=== PATIENT | female | born 2005 | race African-American/Black ===

== ENCOUNTER 2024-08-06 08:29 | Emergency (ER) | payer OTHER, SELFPAY ==
[2024-08-06 08:37] VITALS: BP 135/80
--- NOTE | 2024-08-06 09:37 | ED.MUSCINJ ---
HPI-Injury
General
Chief Complaint: Extremity Pain (non-traumatic)
Source: patient and family (mother)
Exam Limitations: none
Time Seen by Provider: 08/06/24 09:17
Nursing documentation reviewed up to this point in time: agreed with
History of Present Illness-Injury
Is this injury a work related problem?: No
Is pt an associate of [facility]?: No
Initial Injury comments:
19-year-old female presents emergency room with complaining of saw spots in her bilateral feet. The pain began while she was walking on . She states she is on her feet a lot for school and work she has been wearing flip flops and wedges.
No fall, no bleeding.
Past History
Past History
ED Past Medical History: Seizures and Psychiatric (ADHD, anxiety, depression)
ED Past Surgical History: None
Patient has exhibited threatening behavior?: No
PSI?: No
Social History
Tobacco: Non-smoker
Alcohol: None
Drug: None
Personal: Single
Living: with family
Employment: Not employed
Family History
Family History: Other (positive for epilepsy and pseudo-seizures)
Review of Systems
Review of Systems
Allergies reviewed?: Yes
All Other Systems: Not applicable
Constitutional: Reports no symptoms
EENT: Reports no symptoms
Respiratory: Reports no symptoms
Cardiac: Reports no symptoms
ABD/GI: Reports no symptoms
: Reports no symptoms
Musculoskeletal: Reports joint pain
Skin: Reports no symptoms
Neurological: Reports no symptoms
Endocrine: Reports no symptoms
Hematologic/Lymphatic: Reports no symptoms
Psychiatric: Reports no symptoms
Phy Exam
Physical Exam
Physical Exam:
Physical Exam
General: no apparent distress, not acutely ill
Neck: supple. no meningeal signs. normal posterior pharynx
Heart: equal radial pulses.
HEENT: Pupils equal round reactive to light, EOMI
Lungs: no acute respiratory distress.
Abdomen: Nondistended
Neuro: alert and oriented. no focal neurological deficits
Skin: no rash
Psychiatric: well kept. interactive and cooperative
Extremities: no edema. no calf tenderness. negative homans. good distal pulses, tender to palpation at mid foot, no broken skin or blister
Injury Course
Orders/Labs/Results
Orders:
Orders
08/06/24 09:35
Foot, Left 3 View [CR Foot - Left Min 3 Views] Urgent
Comment:
Reason For Exam: left mid foot pain
Foot, Right 3 View [CR Foot - Right Min 3 Views] Urgent
Comment:
Reason For Exam: right mid foot pain
MDM/Problems Addressed
Differential Diagnosis Includes:
bilateral feet fractures, cellulitis
MDM/Problems Addressed:
19 yo female with bilateral foot pain, no fractures seen, no infection. F/u with podiatry, discussed better footwear.
*Radiology
Radiology exam reviewed: preliminary read by ED provider (bilateral foot xray: no fracture)
*Pulse Oximetry
Patient hypoxic: no
*Critical Care Note
Total Time (30-74mins, 75-104mins- exclusive of procedures): Not Applicable
Patient Management
Social determinants of health affecting care: Living situation
Escalation/DeEscalation of care consider admission/obs:
admit not indicated
ED Attending Note
-
Portions of this chart may have been created with voice recognition software.� Occasional wrong word or��sound alike� substitutions may have occurred due to the inherent limitations of voice recognition software.
Discharge Plan
Departure
Patient Disposition: Home (Routine Discharge)
Date of Disposition: 08/06/24
Time of Disposition: 10:16
Patient with high blood pressure during this ER visit?: Yes
Condition: Good
Discharge Problem:
Bilateral foot pain
Instructions: Muscle and Bone Pain (DC), BLOOD PRESSURE
Prescriptions:
No Action
atomoxetine [Strattera] 40 MG capsule
40 mg PO DAILY
methylphenidate HCl [Concerta] 36 MG tablet extended release 24hr
72 mg PO DAILY
multivitamin with folic acid [Tab-A-Johana] 1 TABLET tablet
1 tab PO DAILY
desvenlafaxine 50 MG tablet extended release 24hr
50 mg PO DAILY
clonidine HCl 0.1 MG tablet
0.1 mg PO HS
lamotrigine 25 MG tablet, chewable dispersible
25 mg PO BID 30 Days Qty: 60 0RF
Mucus Relief ER 1,200 mg tablet extended release 12hr
1,200 mg PO BID Qty: 14 0RF
albuterol sulfate [Ventolin HFA] 90 mcg/actuation HFA aerosol inhaler
2 puff inhalation Q6H PRN (Reason: shortness of breath or wheezing) Qty: 8.5 0RF
Referrals:
Chu Torres DO [Family Provider] -
Elise Ramey DPM [Specified Professional Personl] - Call in 1-3 days for appt
Discharge Date and Time
Print Language: GREENLANDIC
== END 2024-08-06 10:00 | disposition home or self-care (01) ==
LOC: EMR 08:29
PROVIDERS: EMERGENCY PHYSICIAN Emergency Medicine; FAMILY PHYSICIAN Family Medicine
DX: M79.671 Pain in right foot (principal); M79.672 Pain in left foot; R03.0 Elevated blood-pressure reading, without diagnosis of hypertension; F90.9 Attention-deficit hyperactivity disorder, unspecified type; R56.9 Unspecified convulsions; F41.9 Anxiety disorder, unspecified; F32.A Depression, unspecified
CPT/HCPCS: 99283; 73630

== ENCOUNTER 2025-01-06 10:46 | Emergency (ER) | payer OTHER, SELFPAY ==
[2025-01-06 10:51] VITALS: BP 129/79
[2025-01-06 11:23] LABS: COVID-19 Antigen Negative (Negative)
--- NOTE | 2025-01-06 11:47 | ED.GENMED ---
History of Present Illness
General
Chief Complaint: Cold/Flu/URI Symptoms
Source: patient
Exam Limitations: none
Time Seen by Provider: 01/06/25 11:35
History of Present Illness
History of Present Illness:
19yoF with a history of seizures, ADHD, and anxiety presenting for evaluation of flu-like symptoms x 1 day. Symptoms include sore throat, body aches, fatigue, headache, and vomiting. She also is having low grade fevers and temp is 100.2 on arrival.
Additionally, she feels short of breath and has been using her inhaler. No known sick contacts.
Past History
Past History
ED Past Medical History: Seizures and Psychiatric (ADHD, anxiety, depression)
ED Past Surgical History: None
Patient has exhibited threatening behavior?: No
PSI?: No
Social History
Tobacco: Non-smoker
Alcohol: None
Drug: None
Personal: Single
Living: with family
Employment: Not employed
Family History
Family History: Other (positive for epilepsy and pseudo-seizures)
Phy Exam
General Physical Exam
General Presentation: well appearing and no apparent distress
General age: appears stated age
General Skin: warm and dry
General Habitus: normal
General Mental: alert
ENT Exam
ENT Exam: pharynx normal and normocephalic
Cardiovascular Exam
Cardiovascular Exam: no murmur and tachycardia
Pulmonary Exam
Pulmonary Exam: no respiratory distress, no rales, no rhonchi and decreased breath sounds
Neurological Exam
Neurological Exam: alert
[place] Coma Scale
Eye Opening: Spontaneous
Verbal Response: Oriented
Motor Response: Obeys Commands
GCS Total Score: 15
Skin Exam
Skin Exam: normal color and warm/dry
Psychiatric Exam
Psychiatric Exam: normal mood/affect
Course
Orders/Labs/Results
Orders:
Orders
01/06/25 10:58
COVID-19 Antigen Urgent
Source: Nasal Swab
Influenza A+B Rapid Molecular Urgent
LUISANA Source: Nasal Swab
Specimen Description:
01/06/25 11:46
CR Chest - 2 Views Urgent
Comment:
Reason For Exam: SOB, flu+
Vital Signs
Initial and Last Documented VS:
Initial Vital Signs
Temp Pulse Resp BP Pulse Ox
100.2 F 125 20 129/79 98
01/06/25 10:51 01/06/25 10:51 01/06/25 10:51 01/06/25 10:51 01/06/25 10:51
Last Documented Vital Signs
Temp Pulse Resp BP Pulse Ox
99.1 F 94 16 133/87 99
01/06/25 12:00 01/06/25 12:00 01/06/25 12:00 01/06/25 12:00 01/06/25 12:57
MDM/Problems Addressed
Differential Diagnosis Includes:
19yoF here with flu-like symptoms since yesterday. Also c/o feeling slightly short of breath. Uses inhaler PRN but denies prior hx of asthma. Oxygen saturation 98% on room air. She is well appearing in no distress. Breath sounds decreased.
Respirations non-labored. Differential diagnosis includes but is not limited to: influenza, COVID, other viral illness, bronchospasm, pneumonia
Initial ED plan: Viral testing obtained in triage and she is positive for influenza A. Will obtain CXR.
*Critical Care Note
Total Time (30-74mins, 75-104mins- exclusive of procedures): Not Applicable
Update Note
Update Note:
CXR negative for infiltrates. Repeat oxygen saturation 99%. Patient stable for discharge. Given report of inhaler use, will prescribe course of prednisone. Refill also given for her albuterol inhaler. Supportive care discussed. Advised f/u with PCP
and ED return precautions discussed. Patient in agreement with plan and was discharged in stable condition.
ED Attending Note
-
Portions of this chart may have been created with voice recognition software.� Occasional wrong word or��sound alike� substitutions may have occurred due to the inherent limitations of voice recognition software.
Discharge Plan
Departure
Patient Disposition: Home (Routine Discharge)
Date of Disposition: 01/06/25
Time of Disposition: 12:55
Patient with high blood pressure during this ER visit?: No
Discharge Problem:
Influenza A, Bronchospasm
Instructions: Flu in adults - ED discharge instructions
Prescriptions:
New
albuterol sulfate [Ventolin HFA] 90 mcg/actuation HFA aerosol inhaler
1 inh inhalation Q6H PRN (Reason: shortness of breath or wheezing) Qty: 1 0RF
prednisone 20 mg tablet
40 mg PO DAILY 5 Days Qty: 10 0RF
No Action
atomoxetine [Strattera] 40 MG capsule
40 mg PO DAILY
methylphenidate HCl [Concerta] 36 MG tablet extended release 24hr
72 mg PO DAILY
multivitamin with folic acid [Tab-A-Johana] 1 TABLET tablet
1 tab PO DAILY
desvenlafaxine 50 MG tablet extended release 24hr
50 mg PO DAILY
clonidine HCl 0.1 MG tablet
0.1 mg PO HS
lamotrigine 25 MG tablet, chewable dispersible
25 mg PO BID 30 Days Qty: 60 0RF
Mucus Relief ER 1,200 mg tablet extended release 12hr
1,200 mg PO BID Qty: 14 0RF
albuterol sulfate [Ventolin HFA] 90 mcg/actuation HFA aerosol inhaler
2 puff inhalation Q6H PRN (Reason: shortness of breath or wheezing) Qty: 8.5 0RF
Referrals:
Chu Torres DO [Family Provider] -
Activity Restrictions/Additional Instructions:
Take prednisone as prescribed. Drink plenty of fluids and rest. Take Tylenol and ibuprofen as needed for fevers/body aches. Use inhaler as needed for wheezing.
Please follow-up with your family doctor. Return to the ER with any worsening symptoms or trouble breathing.
Interventions
Interventions:
*Risk Screen - Suicide Last Done: 01/06/25 11:59
*General Assessment Last Done: 01/06/25 11:59
*Neglect/Abuse Screening Last Done: 01/06/25 11:59
ED- Fall Risk Assessment Last Done: 01/06/25 11:59
*Nursing Disposition Last Done: 01/06/25 12:57
ED- Pulmonary Assessment Last Done: 01/06/25 11:59
Discharge Date and Time
Discharge Date/Time: 01/06/25 13:03
Print Language: NEPALI
[2025-01-06 12:00] VITALS: BP 133/87
== END 2025-01-06 13:03 | disposition home or self-care (01) ==
LOC: EMR 10:46
PROVIDERS: Emergency Medicine; EMERGENCY PHYSICIAN Emergency Medicine; FAMILY PHYSICIAN Family Medicine
DX: J10.1 Influenza due to other identified influenza virus with other respiratory manifestations (principal); J98.01 Acute bronchospasm; F90.9 Attention-deficit hyperactivity disorder, unspecified type; F41.9 Anxiety disorder, unspecified; Z11.52 Encounter for screening for COVID-19
CPT/HCPCS: 99284; 71046; 87502; 87811

== ENCOUNTER 2025-01-12 08:27 | Emergency (ER) | payer OTHER, SELFPAY ==
[2025-01-12 08:31] VITALS: BP 130/80
--- NOTE | 2025-01-12 09:00 | ED.GENMED ---
History of Present Illness
General
Chief Complaint: Cold/Flu/URI Symptoms
Source: patient
Exam Limitations: none
Time Seen by Provider: 01/12/25 08:57
Nursing documentation reviewed up to this point in time: agreed with
History of Present Illness
History of Present Illness:
Patient is a 19-year-old female who presents to the ER for evaluation of painful lump to the left lateral neck. She was here January 06 and diagnosed with influenza. Last night she noticed a lump to this left lateral neck. She denies any sore
throat. She did cough up a little blood. She has been coughing. She has been taking Motrin Tylenol for fevers. She does have history of asthma and had a chest x-ray done which was negative for infiltrates when she was seen here several days ago.
In addition she was prescribed prednisone for cough.
Past History
Past History
ED Past Medical History: Seizures and Psychiatric (ADHD, anxiety, depression)
ED Past Surgical History: None
Patient has exhibited threatening behavior?: No
PSI?: No
Social History
Tobacco: Non-smoker
Alcohol: None
Drug: None
Personal: Single
Living: with family
Employment: Not employed
Family History
Family History: Other (positive for epilepsy and pseudo-seizures)
Review of Systems
Review of Systems
Allergies reviewed?: Yes
All Other Systems: ROS reviewed and negative except as documented in HPI and ROS
Constitutional: Reports no symptoms, fatigue and chills
EENT: Reports other (swelling to left lateral of neck ); Denies sore throat
Respiratory: Reports cough and other (coughed up 'small amt of blood today' )
Cardiac: Reports no symptoms
ABD/GI: Reports no symptoms
: Reports no symptoms
Musculoskeletal: Reports no symptoms
Skin: Reports no symptoms
Neurological: Reports no symptoms
Psychiatric: Reports no symptoms
Phy Exam
General Physical Exam
General Presentation: no apparent distress
General age: appears stated age
General Skin: warm and dry
General Habitus: normal
General Mental: alert
General Hydration: appears well hydrated
ENT Exam
ENT Exam: EOMI, pharynx normal (no trismus ; left lateral anterior cervical lymphadenopathy), neck supple and other
Additional ENT: Pharynx patent no obvious exudate uvula midline no swelling to pharynx
Cardiovascular Exam
Cardiovascular Exam: regular rate/rhythm and occasionally irregular
Pulmonary Exam
Pulmonary Exam: lungs clear and no respiratory distress
Neurological Exam
Neurological Exam: alert and oriented x3
Musculoskeletal Exam
Musculoskeletal Exam: full ROM
Skin Exam
Skin Exam: normal color and warm/dry
Psychiatric Exam
Psychiatric Exam: normal mood/affect
Course
Vital Signs
Initial and Last Documented VS:
Initial Vital Signs
Temp Pulse Resp BP Pulse Ox
98.3 F 91 16 130/80 98
01/12/25 08:31 01/12/25 08:31 01/12/25 08:31 01/12/25 08:31 01/12/25 08:31
Last Documented Vital Signs
Temp Pulse Resp BP Pulse Ox
98.3 F 91 16 130/80 100
01/12/25 08:31 01/12/25 08:31 01/12/25 08:31 01/12/25 08:31 01/12/25 09:36
Linux Unix Administrator consulted with Physician
Linux Unix Administrator consulted with physician?: Yes
Name of Physician Consulted: Yoshi
MDM/Problems Addressed
Differential Diagnosis Includes:
not limited to: Lymphadenopathy
MDM/Problems Addressed:
As documented patient is a 19-year-old female with flu on January 06 here in the ER presents today with complaints of small lymph nodes left lateral neck. Patient is nontoxic in no acute distress symptoms are consistent with lymphadenopathy. There
is no drooling or trismus pharynx is normal stable for discharge home. Case discussed with ED physician
*Pulse Oximetry
Patient hypoxic: no
*Critical Care Note
Total Time (30-74mins, 75-104mins- exclusive of procedures): Not Applicable
Data Reviewed
Review of Other/Old Records Reveals: Other (previous ED visit )
ED Attending Note
-
Portions of this chart may have been created with voice recognition software.� Occasional wrong word or��sound alike� substitutions may have occurred due to the inherent limitations of voice recognition software.
Discharge Plan
Departure
Patient Disposition: Home (Routine Discharge)
Date of Disposition: 01/12/25
Time of Disposition: 09:30
Patient with high blood pressure during this ER visit?: Yes
Condition: Fair
Covid-19: Not Applicable
Discharge Problem:
Influenza A, Lymphadenopathy
Instructions: Flu in adults - Discharge instructions, BLOOD PRESSURE
Prescriptions:
No Action
atomoxetine [Strattera] 40 MG capsule
40 mg PO DAILY
methylphenidate HCl [Concerta] 36 MG tablet extended release 24hr
72 mg PO DAILY
multivitamin with folic acid [Tab-A-Johana] 1 TABLET tablet
1 tab PO DAILY
desvenlafaxine 50 MG tablet extended release 24hr
50 mg PO DAILY
clonidine HCl 0.1 MG tablet
0.1 mg PO HS
lamotrigine 25 MG tablet, chewable dispersible
25 mg PO BID 30 Days Qty: 60 0RF
Mucus Relief ER 1,200 mg tablet extended release 12hr
1,200 mg PO BID Qty: 14 0RF
albuterol sulfate [Ventolin HFA] 90 mcg/actuation HFA aerosol inhaler
2 puff inhalation Q6H PRN (Reason: shortness of breath or wheezing) Qty: 8.5 0RF
albuterol sulfate [Ventolin HFA] 90 mcg/actuation HFA aerosol inhaler
1 inh inhalation Q6H PRN (Reason: shortness of breath or wheezing) Qty: 1 0RF
prednisone 20 mg tablet
40 mg PO DAILY 5 Days Qty: 10 0RF
Referrals:
Chu Torres, [Family Provider] -
Activity Restrictions/Additional Instructions:
As discussed his swelling in your neck is from an enlarged lymph node .this is from a virus and you tested positive for influenza A several days ago. You may continue your previous medications,'s steroids Tylenol warm compresses. Get plenty rest
and stay well-hydrated. Follow-up with your family doctor in the next 2 days for reevaluation return if any worsening of symptoms.
Interventions
Interventions:
*Risk Screen - Suicide Last Done: 01/12/25 08:33
*General Assessment Last Done: 01/12/25 09:36
*Neglect/Abuse Screening Last Done: 01/12/25 08:33
ED- Fall Risk Assessment Last Done: 01/12/25 09:38
*ED COVID-19 Vaccine History Last Done: 01/12/25 09:36
*Nursing Disposition Last Done: 01/12/25 09:38
ED- Pulmonary Assessment Last Done: 01/12/25 09:36
Discharge Date and Time
Discharge Date/Time: 01/12/25 09:38
Print Language: TURKISH
== END 2025-01-12 09:38 | disposition home or self-care (01) ==
LOC: EMR 08:27
PROVIDERS: EMERGENCY PHYSICIAN Emergency Medicine; FAMILY PHYSICIAN Family Medicine
DX: J10.1 Influenza due to other identified influenza virus with other respiratory manifestations (principal); R59.1 Generalized enlarged lymph nodes; R03.0 Elevated blood-pressure reading, without diagnosis of hypertension; F90.9 Attention-deficit hyperactivity disorder, unspecified type; R56.9 Unspecified convulsions; F41.9 Anxiety disorder, unspecified; F32.A Depression, unspecified; J45.909 Unspecified asthma, uncomplicated
CPT/HCPCS: 99282

== ENCOUNTER 2025-07-03 13:27 | Emergency (ER) | payer OTHER, SELFPAY ==
[2025-07-03 13:32] VITALS: BP 132/81
[2025-07-03 14:05] LABS: HCG, Serum Qualitative Screen Negative
--- NOTE | 2025-07-03 15:05 | ED.GENMED ---
History of Present Illness
General
Chief Complaint: Problems
Source: patient
Exam Limitations: none
Time Seen by Provider: 07/03/25 14:28
Nursing documentation reviewed up to this point in time: agreed with
History of Present Illness
History of Present Illness:
see MDM
Past History
Past History
ED Past Medical History: Seizures and Psychiatric (ADHD, anxiety, depression)
ED Past Surgical History: None
Patient has exhibited threatening behavior?: No
PSI?: No
Social History
Tobacco: Non-smoker
Alcohol: None
Drug: None
Personal: Single
Living: with family
Employment: Not employed
Family History
Family History: Other (positive for epilepsy and pseudo-seizures)
Review of Systems
Review of Systems
Allergies reviewed?: Yes
All Other Systems: Not applicable
Phy Exam
Physical Exam
Physical Exam:
GENERAL: Alert , in no apparent distress
CARDIAC: Regular rate and rhythm .
LUNGS: Clear breath sounds bilaterally, no acute respiratory distress, no wheezes/rales/rhonchi
NEUROLOGICAL: Alert and oriented, no focal neuro deficits
MUSCULOSKELETAL: No edema, well perfused. neg alli's sign
PSYCH: Normal and appropriate interaction.
Course
Orders/Labs/Results
Orders:
Orders
07/03/25 13:35
Test Result ONCE
07/03/25 13:40
HCG, Serum Qualitative Screen Urgent
Vital Signs
Initial and Last Documented VS:
Initial Vital Signs
Temp Pulse Resp BP Pulse Ox
36.7 C 100 16 132/81 98
07/03/25 13:32 07/03/25 13:32 07/03/25 13:32 07/03/25 13:32 07/03/25 13:32
Last Documented Vital Signs
Temp Pulse Resp BP Pulse Ox
36.7 C 100 16 132/81 98
07/03/25 13:32 07/03/25 13:32 07/03/25 13:32 07/03/25 13:32 07/03/25 13:32
Information
Weeks gestation: N/A
Location: N/A
MDM/Problems Addressed
Differential Diagnosis Includes:
see MDM
MDM/Problems Addressed:
Note:
CHIEF COMPLAINT(S)
Concern about potential .
HISTORY OF PRESENT ILLNESS
The patient is a 20-year-old female who presents with concerns regarding a possible . She reports that her mother is concerned due to her weight gain and mood fluctuations, prompting a request for a evaluation. The patient
mentions a history of using an intrauterine device (IUD) and irregular menstrual cycles, with her last menstrual period not clearly stated, maybe march. She performed two home tests, with one appearing positive after reading it outside the
recommended time frame.
she has no medical complaints
just requesting preg test
pt is aware she is rh neg from previuos
ADDITIONAL HISTORY OBTAINED FROM SOURCES OTHER THAN THE PATIENT
The patient indicated a conversation with her mother, who expressed concerns about the patients weight gain and mood stability, prompting the visit for testing.
SOCIAL DETERMINANTS AFFECTING HEALTH
The patients mother is involved in her healthcare decisions, evidenced by urging the patient to seek testing.
REVIEW OF SYSTEMS
- General: Reports of weight gain.
- Mood: Describes fluctuating mood.
- Gynecologic: Irregular menstrual cycles. No regular periods reported due to IUD usage.
PHYSICAL EXAM
triage vitals reviewed
PROBLEM LIST
Acute Problems:
- Concern about potential .
PLAN
- Reviewed and confirmed that the blood test was negative.
- Educated the patient about reading home tests within the recommended time frame.
- Discussed Rh immunoglobulin (RhoGAM) administration guidelines during for Rh-negative patients, emphasizing that it is not needed unless bleeding occurs in the second trimester or exposure to blood is suspected.
- Brief physical examination conducted, including auscultation of heart and lungs.
DIFFERENTIAL DIAGNOSIS
The Differential Diagnosis includes, in no particular order and is not limited to:
- Psychological stress or mood disorder
- Weight gain secondary to dietary or lifestyle factors
- Hormonal imbalance
- Side effects from intrauterine device (IUD) usage
- Possible early (ruled out by negative test)
- Thyroid dysfunction
- Depression or anxiety disorder
- Metabolic syndrome
- Polycystic ovary syndrome (PCOS)
- Other endocrinological disorders
20 y/o F
here with irregul menstrual cycles and requesting preg test
she has had smoe weight gain and moodiness according to mother who is not here
pt has no comlaitns at this time
she is hcg NEG from serum
d/c home
*Pulse Oximetry
SaO2: 98
Oxygen Mode of Delivery: Room air
Patient hypoxic: no (98)
*Critical Care Note
Total Time (30-74mins, 75-104mins- exclusive of procedures): Not Applicable
ED Attending Note
-
Portions of this chart may have been created with voice recognition software.� Occasional wrong word or��sound alike� substitutions may have occurred due to the inherent limitations of voice recognition software.
Discharge Plan
Departure
Patient Disposition: Home (Routine Discharge)
Date of Disposition: 07/03/25
Time of Disposition: 15:08
Patient with high blood pressure during this ER visit?: No
Condition: Fair
Covid-19: Not Applicable
Discharge Problem:
test negative
Instructions: Absent or irregular periods
Prescriptions:
No Action
atomoxetine [Strattera] 40 MG capsule
40 mg PO DAILY
methylphenidate HCl [Concerta] 36 MG tablet extended release 24hr
72 mg PO DAILY
multivitamin with folic acid [Tab-A-Johana] 1 TABLET tablet
1 tab PO DAILY
desvenlafaxine 50 MG tablet extended release 24hr
50 mg PO DAILY
clonidine HCl 0.1 MG tablet
0.1 mg PO HS
lamotrigine 25 MG tablet, chewable dispersible
25 mg PO BID 30 Days Qty: 60 0RF
Mucus Relief ER 1,200 mg tablet extended release 12hr
1,200 mg PO BID Qty: 14 0RF
albuterol sulfate [Ventolin HFA] 90 mcg/actuation HFA aerosol inhaler
2 puff inhalation Q6H PRN (Reason: shortness of breath or wheezing) Qty: 8.5 0RF
albuterol sulfate [Ventolin HFA] 90 mcg/actuation HFA aerosol inhaler
1 inh inhalation Q6H PRN (Reason: shortness of breath or wheezing) Qty: 1 0RF
prednisone 20 mg tablet
40 mg PO DAILY 5 Days Qty: 10 0RF
Referrals:
Chu Torres DO [Family Provider]
Activity Restrictions/Additional Instructions:
YOUR TEST WAS NEGATIVE
Interventions
Interventions:
*Risk Screen - Suicide Last Done: 07/03/25 13:32
*Neglect/Abuse Screening Last Done: 07/03/25 13:32
Discharge Date and Time
Print Language: SINHALA
[2025-07-03 15:20] VITALS: BP 133/116; BMI 49.3
== END 2025-07-03 15:30 | disposition home or self-care (01) ==
LOC: EMR 13:27
PROVIDERS: Urology; EMERGENCY PHYSICIAN Emergency Medicine; FAMILY PHYSICIAN Family Medicine
DX: Z32.02 Encounter for pregnancy test, result negative (principal)
CPT/HCPCS: 99283; 84703

== ENCOUNTER → 2025-07-13 11:06 | Outpatient (REF) | payer OTHER, SELFPAY ==
--- NOTE | 2025-07-13 13:18 | EEG.RPT ---
Electroencephalogram Report
Recording
Date of EE07/13/25
Type of EEG: Routine
Length of EEG recordin minutes
Done with Video Recording: Yes
Patient Status: Outpatient
Recording Conditions: Awake, Drowsy and Asleep
Hyperventilation Performed: Yes
Photic Stimulation Performed: Yes
Report
LESS THAN 1 HOUR EEG INTERPRETATION:
Unremarkable EEG for age
CLINICAL CORRELATION:
A normal EEG does not rule out a diagnosis of epilepsy. If clinical suspicion for seizure persists, a prolonged recording may be warranted.
Clinical correlation is advised.
METHODS:
A 21 channel digitized electroencephalogram (EEG) was performed using the 10/20 international system of electrode placement and one-lead of ECG recorded. The [employer] quantitative EEG system was utilized.
ELECTROENCEPHALOGRAPHER IMPRESSION(S):
Quality of study
Good
Background
There was an unremarkable anterior-posterior voltage gradient of alpha frequency.
With eye opening the background activity changed to a low voltage mixture of frequencies.
There were no significant asymmetries of background activity noted.
Sleep
Drowsiness present
Stage 1 present
Stage 2 present
Hyperventilation
No activation
Photic Stimulation
No activation
ECG
Normal sinus rhythm
== END ==
LOC: EEG 11:06
PROVIDERS: ATTENDING PHYSICIAN Nurse Practitioner Family; FAMILY PHYSICIAN Family Medicine
DX: R56.9 Unspecified convulsions (principal)
CPT/HCPCS: 95816

== ENCOUNTER 2025-08-24 19:36 | Emergency (ER) | payer OTHER, SELFPAY ==
[2025-08-24 19:39] VITALS: BP 172/89
[2025-08-24 20:12] LABS: Hematocrit 39.6 % (37.0-47.0); Hemoglobin 13.4 g/dL (12.0-16.0); Mean Corp Hgb Conc. 33.8 g/dL (33.0-37.0); Mean Corpuscular Volume 70.2 fL (81.0-99.0); Nucleated Red Blood Cells % 0 %; Platelet Count 352 10^3/uL (130-400); Red Cell Dist. Width 15.2 % (11.5-14.5)
[2025-08-24 20:26] LABS: ALT (SGPT) 53 U/L (0-35); AST (SGOT) 35 U/L (14-36); Albumin 4.7 g/dl (3.5-5.0); Alkaline Phosphatase 84 U/L (38-126); Blood Urea Nitrogen 8 mg/dl (7-17); Calcium 9.5 mg/dl (8.4-10.2); Carbon Dioxide 24 mmol/L (22-30); Chloride 105 mmol/L (98-107); Glucose 103 mg/dl (70-99); Lipase 60 U/L (23-300); Potassium 4.1 mmol/L (3.5-5.1); Sodium 136 mmol/L (135-145); Total Protein 7.8 g/dl (6.3-8.2); eGFR > 60.00
[2025-08-24 21:01] LABS: Urine Character Clear (Clear)
[2025-08-24 22:09] LABS: Urine Red Blood Cell 0-2 /HPF (0-2); Urine Squamous Cell >30 /LPF (Few)
[2025-08-24 22:15] LABS: HCG, Serum Qualitative Screen Negative
[2025-08-25 01:26] VITALS: BP 135/67
[2025-08-25 03:40] VITALS: BP 123/62
--- NOTE | 2025-08-25 03:59 | ED.GENMED ---
History of Present Illness
General
Chief Complaint: Abdominal Pain
Source: patient, family and assisted records
Exam Limitations: none
Time Seen by Provider: 08/24/25 22:47
Nursing documentation reviewed up to this point in time: agreed with
History of Present Illness
History of Present Illness:
Note:
CHIEF COMPLAINT(S)
Left-sided abdominal pain for a couple of weeks.
HISTORY OF PRESENT ILLNESS
The patient, a 20-year-old female, presents with left-sided abdominal pain that has persisted for a couple of weeks. She reports experiencing nausea but denies vomiting, fever, or chills. There has been an increase in bathroom usage, although there
are no issues with bowel movements or passing gas. The pain does not seem to be exacerbated by dairy products or other specific foods, although greasy foods such as those from fast-food chains like [employer] may increase the discomfort somewhat.
Movement such as walking around does not seem to significantly worsen the pain, although the patient mentions she has reduced her regular walking routine from twice to once around due to discomfort. The patient has not undergone any abdominal
surgeries. No significant diagnosis has been established by her family doctor, who has ordered an ultrasound of the abdomen, kidneys, and accompanying lab tests, although these have yet to be completed.
PAST MEDICAL AND SURIGICAL HISTORY
None reported.
PHYSICAL EXAM
General: Alert, no acute distress.
Skin: Warm, dry.
Head: Normocephalic, atraumatic.
Neck: Supple, trachea midline.
Eye Ears, nose, mouth and throat: Oral mucosa moist.
Cardiovascular: Normal peripheral perfusion, No edema.
Respiratory: Respirations are non-labored.
Gastrointestinal : Abdomen nondistended.
Back: Normal range of motion, Normal alignment.
Musculoskeletal: Normal range of motion, normal strength.
Neurological: Alert and oriented to person, place, time, and situation, No focal neurological deficit observed.
Psychiatric: Cooperative, appropriate mood & affect.
PLAN
The plan involves proceeding with the ordered abdominal and kidney ultrasound to further investigate the etiology of the abdominal pain. Lab work previously ordered by her primary care physician will also be reviewed to help in the diagnostic
process.
DIFFERENTIAL DIAGNOSIS
The Differential Diagnosis includes, in no particular order and is not limited to:
1. Gastroenteritis
2. Urinary tract infection
3. Kidney stones
4. Peptic ulcer disease
5. Gastritis
6. Ovarian cyst
7. Pancreatitis
8. Appendicitis
9. Diverticulitis
10. Irritable bowel syndrome
Disposition:
SUMMARY OF ENCOUNTER
A 20-year-old female presented with left-sided abdominal pain. An abdominal ultrasound revealed ovarian cysts without evidence of torsion. The patient was able to consume fast food and drink liquids without reporting worsening pain during her stay
in the emergency department.
DISPOSITION
Patient to be discharged home with instructions for close follow-up.
PLAN
Proceed with discharge and ensure the patient follows up with her primary care physician for further evaluation and management as needed.
PATIENT EDUCATION AND COUNSELING
The patient was advised regarding the presence of ovarian cysts and informed about signs to watch for that would necessitate returning to the emergency department, such as increased pain, fever, or other concerning symptoms.
FOLLOW-UP INSTRUCTIONS
The patient was instructed to follow up with her primary care provider for further assessment and management of her condition.
MEDICATION RECONCILIATION
None prescribed during the visit.
MEDICAL DECISION MAKING
- Complexity of Data Reviewed: Includes Differential Diagnosis: Gastroenteritis, Urinary tract infection, Kidney stones, Peptic ulcer disease, Gastritis, Ovarian cyst, Pancreatitis, Appendicitis, Diverticulitis, Irritable bowel syndrome.
DATA
Category 1
Clinical information obtained supports the presence of ovarian cysts.
-Risk:
�Consideration of Admission/Observation: Escalation of care including admission/observation was considered given the complexity and risk of the patients presenting complaint, exam findings, and/or underlying comorbidities. However, ultimately I feel
the patient is safe for outpatient management with close follow-up. Reasoning: Work-up reassuring, does not reveal any acute life/organ-threatening processes, patients symptoms well controlled upon reevaluation, reexamination is reassuring, vitals
are stable, patient agreeable with discharge, reliable for follow-up.�
DIAGNOSIS
Ovarian cysts without torsion - ICD-10 Code: N83.20.
NAME: BRIANNA LIVE
DATE OF EXAM: 08/25/2025
Patient No: [id number]
Physician: DAVE
Date of : 2005
Past Medical History (entered by Technologist):
Reason For Exam (entered by Technologist):
Other Notes (entered by Technologist):
Additional Information (per Vision Radiologist):
US pelvis
Comparison: CT abdomen/pelvis from same date
IMPRESSION:
�Transabdominal images only.
�Anteverted uterus. No myometrial mass. Intrauterine device is present although position is not well-evaluated. The surrounding endometrium does not appear significantly thickened.
�Right ovary measures up to 4.6 cm. Within the ovary is a 3.4 cm cyst with lacelike, avascular internal reticulation, likely an old hemorrhagic cyst. Surrounding nonedematous stroma. Normal arterial and venous flow on spectral Doppler. No
paraovarian mass.
�Left ovary measures up to 2.9 cm. Nonedematous stroma. Normal arterial and venous flow on spectral Doppler. No paraovarian mass.
�No significant free fluid in the pelvic cul-de-sac.
Case finalized on 08/25/25 05:57 EDT
Mirela Morin M.D.
This report has been electronically signed and verified by the Radiologist whose name is printed above.
Past History
Past History
ED Past Medical History: Seizures and Psychiatric (ADHD, anxiety, depression)
ED Past Surgical History: None
Patient has exhibited threatening behavior?: No
PSI?: No
Social History
Tobacco: Non-smoker
Alcohol: None
Drug: None
Personal: Single
Living: with family
Employment: Not employed
Family History
Family History: Other (positive for epilepsy and pseudo-seizures)
Phy Exam
Physical Exam
Physical Exam:
.
Course
Orders/Labs/Results
Orders:
Orders
08/24/25 19:56
Urinalysis Reflex To Culture Urgent
Date Specimen was Collected: 08/24/25
Time Specimen was Collected: 19:39
Urine Microscopic Reflex Cult Urgent
Urine Culture Urgent
LUISANA Source: U
Specimen Description:
Date Specimen was Collected: 08/24/25
Time Specimen was Collected: 19:39
08/24/25 19:59
Complete Blood Count/With Diff Urgent
Comprehensive Metabolic Panel Urgent
HCG, Serum Qualitative Screen Urgent
Comment: ADD ON
Lipase Urgent
08/24/25 21:37
Add On- LAB Urgent
Tests Added?: hcg qualitative
08/24/25 21:57
Add On- LAB Urgent
Tests Added?: hcg qualitative
08/25/25 00:25
CT Abd/pelvis W Iv Cont Urgent
Comment:
Reason For Exam: left abd pain
08/25/25 03:40
US Pelvis Only (non-obstetric) Urgent
Comment:
Reason For Exam: cyst
Abnormal Lab Results
08/24/25 08/24/25
19:56 19:59
RBC 5.64 H 10^6/uL
(4.20-5.40)
MCV 70.2 L fL
(81.0-99.0)
MCH 23.8 L pg
(27.0-31.0)
RDW 15.2 H %
(11.5-14.5)
Abs Immat Gran (auto) 0.1 H 10^3/uL
(0-0.05)
Absolute Monos (auto) 0.8 H 10^3/uL
(0.1-0.6)
Immature Gran % 1.1 H %
(0-0.5)
Glucose 103 H mg/dl
(70-99)
ALT 53 H U/L
(0-35)
Leukocyte Esterase Rfl 1+ A
(Negative)
Urine Bacteria (Reflex) Few A
(Negative)
08/24/25 19:59
08/24/25 19:59
Vital Signs
Initial and Last Documented VS:
Initial Vital Signs
Temp Pulse Resp BP Pulse Ox
97.5 F 100 16 172/89 96
08/24/25 19:39 08/24/25 19:39 08/24/25 19:39 08/24/25 19:39 08/24/25 19:39
Last Documented Vital Signs
Temp Pulse Resp BP Pulse Ox
97.5 F 95 18 115/49 98
08/24/25 19:39 08/25/25 01:26 08/25/25 01:26 08/25/25 06:00 08/25/25 06:00
*Radiology
Radiology exam reviewed: radiology read reviewed
*Pulse Oximetry
SaO2: 95
Oxygen Mode of Delivery: Room air
Patient hypoxic: no
*Critical Care Note
Total Time (30-74mins, 75-104mins- exclusive of procedures): Not Applicable
Update Note
Update Note:
NAME: BRIANNA LIVE
DATE OF EXAM: 08/25/2025
Patient No: [id number]
Physician: MEGHA^Jimi
Date of : 2005
Past Medical History (entered by Technologist):
Reason For Exam (entered by Technologist):
Other Notes (entered by Technologist): patient c/o left sided upper and lower abdominal pain x 2 weeks. denies n/v/d
Additional Information (per [facility] Radiologist):
CT ABDOMEN PELVIS WITH CONTRAST
COMPARISON: None
IMPRESSION:
Right ovarian lesion measuring 4.2 cm is indeterminate, possible hemorrhagic cyst. Consider pelvic ultrasound to further evaluate.
The urinary bladder wall is thickened but the bladder is not distended. This may indicate cystitis. Correlate with urinalysis.
No obstructive uropathy.
No evidence of diverticulitis or colitis. Normal appendix. No bowel obstruction. No free air.
No concerning bone finding.
Case finalized on 08/25/25 03:39 EDT
Pravin Saul M.D.
This report has been electronically signed and verified by the Radiologist whose name is printed above.
NAME: BRIANNA LIVE
DATE OF EXAM: 08/25/2025
Patient No: [id number]
Physician: DAVE
Date of : 2005
Past Medical History (entered by Technologist):
Reason For Exam (entered by Technologist):
Other Notes (entered by Technologist):
Additional Information (per [facility] Radiologist):
US pelvis
Comparison: CT abdomen/pelvis from same date
IMPRESSION:
�Transabdominal images only.
�Anteverted uterus. No myometrial mass. Intrauterine device is present although position is not well-evaluated. The surrounding endometrium does not appear significantly thickened.
�Right ovary measures up to 4.6 cm. Within the ovary is a 3.4 cm cyst with lacelike, avascular internal reticulation, likely an old hemorrhagic cyst. Surrounding nonedematous stroma. Normal arterial and venous flow on spectral Doppler. No
paraovarian mass.
�Left ovary measures up to 2.9 cm. Nonedematous stroma. Normal arterial and venous flow on spectral Doppler. No paraovarian mass.
�No significant free fluid in the pelvic cul-de-sac.
Case finalized on 08/25/25 05:57 EDT
R. Dorsey Patience, M.D.
This report has been electronically signed and verified by the Radiologist whose name is printed above.
ED Attending Note
-
Portions of this chart may have been created with voice recognition software.� Occasional wrong word or��sound alike� substitutions may have occurred due to the inherent limitations of voice recognition software.
Discharge Plan
Departure
Patient Disposition: Home (Routine Discharge)
Date of Disposition: 08/25/25
Time of Disposition: 06:19
Patient with high blood pressure during this ER visit?: Yes
Condition: Good
Discharge Problem:
Abdominal pain
Instructions: Abdominal Pain
Prescriptions:
No Action
atomoxetine [Strattera] 40 MG capsule
40 mg PO DAILY
methylphenidate HCl [Concerta] 36 MG tablet extended release 24hr
72 mg PO DAILY
multivitamin with folic acid [Tab-A-Johana] 1 TABLET tablet
1 tab PO DAILY
desvenlafaxine 50 MG tablet extended release 24hr
50 mg PO DAILY
clonidine HCl 0.1 MG tablet
0.1 mg PO HS
lamotrigine 25 MG tablet, chewable dispersible
25 mg PO BID 30 Days Qty: 60 0RF
Mucus Relief ER 1,200 mg tablet extended release 12hr
1,200 mg PO BID Qty: 14 0RF
albuterol sulfate [Ventolin HFA] 90 mcg/actuation HFA aerosol inhaler
2 puff inhalation Q6H PRN (Reason: shortness of breath or wheezing) Qty: 8.5 0RF
albuterol sulfate [Ventolin HFA] 90 mcg/actuation HFA aerosol inhaler
1 inh inhalation Q6H PRN (Reason: shortness of breath or wheezing) Qty: 1 0RF
prednisone 20 mg tablet
40 mg PO DAILY 5 Days Qty: 10 0RF
Referrals:
Candida Marino MD [Family Provider, Internal Medicine]
Activity Restrictions/Additional Instructions:
Thank You for choosing [facility].
It was a pleasure meeting you and taking part in your care. We hope for your continued healing and wellness.
Please read discharge instructions in their entirety. However, they are for general education and may not describe your exact diagnosis at discharge. Information on your ER visit and medical conditions were discussed with you along with appropriate
follow up information...
If indicated, please take your medications as instructed and indicated on discharge paperwork.
Please schedule a follow up appointment as directed. Call to schedule an appointment
Please return to the emergency department with ANY change in, persisting, or worsening of symptoms. If any of your symptoms do not improve, or persist, or become more severe within 6-12 hours, please return to the emergency department for further
care.
Please return to the emergency department if you develop a headache, neck pain/stiffness, fever greater than 100.4F, chest pain, shortness of breath, persistent nausea, vomiting, slurred speech, difficulty walking, numbness/tingling, weakness, signs
of infection or any other symptoms that are worrisome to you.
If you have any questions or concerns please do not hesitate to call the Hospital at .
Interventions
Interventions:
*Risk Screen - Suicide Last Done: 08/24/25 19:39
*General Assessment Last Done: 08/25/25 02:02
*Neglect/Abuse Screening Last Done: 08/24/25 19:39
*ED- Fall Risk Assessment Last Done: 08/25/25 02:02
*ED COVID-19 Vaccine History Last Done: 08/25/25 02:02
*Nursing Disposition Last Done: 08/25/25 07:07
CG-Ffmxwt-[facility] Assessment Last Done: 08/24/25 22:00
Discharge Date and Time
Discharge Date/Time: 08/25/25 07:08
Print Language: CZECH
[2025-08-25 04:00] VITALS: BP 114/77
[2025-08-25 05:01] VITALS: BP 136/64
[2025-08-25 06:00] VITALS: BP 115/49
== END 2025-08-25 07:08 | disposition home or self-care (01) ==
LOC: EMR 19:36
PROVIDERS: Emergency Medicine; EMERGENCY PHYSICIAN Student in an Organized Health Care Education/Training Program; FAMILY PHYSICIAN Hospitalist
DX: R10.32 Left lower quadrant pain (principal); N83.201 Unspecified ovarian cyst, right side; R03.0 Elevated blood-pressure reading, without diagnosis of hypertension; F90.9 Attention-deficit hyperactivity disorder, unspecified type; F41.9 Anxiety disorder, unspecified; F32.A Depression, unspecified; N32.89 Other specified disorders of bladder
CPT/HCPCS: 99284; 74177; 76856; 80053; 81003; 81015; 83690; 84703; 85025; 87086; Q9967

== ENCOUNTER 2025-10-12 12:08 | Emergency (ER) | payer OTHER, SELFPAY ==
[2025-10-12 12:08] VITALS: BMI 55.2
[2025-10-12 12:15] VITALS: BP 144/88
[2025-10-12 12:34] LABS: Urine Character Clear (Clear)
[2025-10-12 12:41] VITALS: BP 109/53
[2025-10-12 13:17] LABS: Urine Squamous Cell 21-25 /LPF (Few); Urine Urothelial Cell 0-2 /LPF (FEW)
[2025-10-12 13:18] LABS: Urine Red Blood Cell 0-2 /HPF (0-2)
--- NOTE | 2025-10-12 13:23 | ED.GENMED ---
History of Present Illness
General
Chief Complaint: Abdominal Pain
Time Seen by Provider: 10/12/25 13:12
History of Present Illness
History of Present Illness:
Patient is a 20-year-old woman presenting to the emergency department with abdominal pain. Patient was diagnosed with a right sided ovarian cyst back in July. She is seeing ASSISTANT ENGINEER tomorrow. She is presenting today as she has left lower
quadrant abdominal pain that radiates to her epigastric region. She believes that the pain is coming from her ovarian cyst though patient thought it was on her left side. She states it is intermittent and a sharp pain. Most of the pain is about
her epigastric region. No history of biliary disease. No history of pancreatitis. Does not drink alcohol. Did have a prior . She does note that she does have mostly fast food. She has been having some nausea but no vomiting. Some
diarrhea. She is sexually active with 1 male partner. No vaginal discharge. No concerns for sexually transmitted infection
Per chart review patient had a CT scan and an ultrasound on August 25 that does show a right sided ovarian cyst that is 3.4 cm. Patient does not have any tenderness or any complaints in the right lower quadrant which is reassuring.
Past History
Past History
ED Past Medical History: Seizures and Psychiatric (ADHD, anxiety, depression)
ED Past Surgical History: None
Patient has exhibited threatening behavior?: No
PSI?: No
Social History
Tobacco: Non-smoker
Alcohol: None
Drug: None
Personal: Single
Living: with family
Employment: Not employed
Family History
Family History: Other (positive for epilepsy and pseudo-seizures)
Phy Exam
Physical Exam
Physical Exam:
GENERAL: in no acute distress
HEENT: normocephalic, extraocular movements intact, moist oral mucosa
NECK: normal inspection
RESPIRATORY: no respiratory distress, clear to auscultation bilaterally
CARDIOVASCULAR: regular rate and rhythm
ABDOMEN/: soft, non-distended, epigastric tenderness, no rebound or guarding
EXTREMITIES: non-tender, no edema/swelling
NEUROLOGIC: awake and alert, moves all extremities
SKIN: warm
Course
Orders/Labs/Results
Orders:
Orders
10/12/25 12:28
Urinalysis Reflex To Culture Urgent
Date Specimen was Collected: 10/12/25
Time Specimen was Collected: 12:18
Urine Microscopic Reflex Cult Urgent
10/12/25 13:21
Famotidine [Pepcid] 40 mg PO NOW STA
Ketorolac [Toradol] 15 mg IV NOW STA
Ondansetron Injectable [Zofran] 4 mg IV NOW STA
Test Result ONCE
10/12/25 13:33
Complete Blood Count/With Diff Urgent
Comprehensive Metabolic Panel Urgent
HCG, Serum Qualitative Screen Urgent
Lipase Urgent
Abnormal Lab Results
10/12/25 10/12/25
12:28 13:33
RBC 6.08 H 10^6/uL
(4.20-5.40)
MCV 70.4 L fL
(81.0-99.0)
MCH 23.8 L pg
(27.0-31.0)
RDW 15.4 H %
(11.5-14.5)
MPV 10.5 H fL
(7.4-10.4)
Abs Immat Gran (auto) 0.1 H 10^3/uL
(0-0.05)
Immature Gran % 1.4 H %
(0-0.5)
Glucose 103 H mg/dl
(70-99)
AST 49 H U/L
(14-36)
ALT 68 H U/L
(0-35)
Ur Occult Blood Reflex 1+ A
(Negative)
Urine Bacteria (Reflex) Few A
(Negative)
10/12/25 13:33
10/12/25 13:33
Vital Signs
Initial and Last Documented VS:
Initial Vital Signs
Temp Pulse Resp BP Pulse Ox
98.2 F 91 16 144/88 98
10/12/25 12:15 10/12/25 12:15 10/12/25 12:15 10/12/25 12:15 10/12/25 12:15
Last Documented Vital Signs
Temp Pulse Resp BP Pulse Ox
98.2 F 91 16 109/53 95
10/12/25 12:15 10/12/25 12:15 10/12/25 12:15 10/12/25 12:41 10/12/25 13:25
MDM/Problems Addressed
Differential Diagnosis Includes:
Patient is a 20-year-old woman presenting to the emergency department with abdominal pain for the past few weeks. On arrival vitals unremarkable on exam does show epigastric tenderness though mild. Differential is broad but consists of peptic
ulcer disease versus esophagitis versus pancreatitis versus biliary pathology. Remainder of the exam is benign so less likely be ovarian pathology. Will check blood work and pain control.
*Pulse Oximetry
SaO2: 95
Oxygen Mode of Delivery: Room air
Patient hypoxic: no
*Critical Care Note
Total Time (30-74mins, 75-104mins- exclusive of procedures): Not Applicable
Update Note
Update Note:
On reevaluation patient is resting comfortably. She is toleratig PO.
Blood work is reassuring. Pain has resolved. Will discharge at this time. Patient given education about acid reflux and strict return precautions. She will see TRANSFER KNITTER tomorrow for the ovarian cyst.
ED Attending Note
-
Portions of this chart may have been created with voice recognition software.� Occasional wrong word or��sound alike� substitutions may have occurred due to the inherent limitations of voice recognition software.
Discharge Plan
Departure
Patient Disposition: Home (Routine Discharge)
Date of Disposition: 10/12/25
Time of Disposition: 14:46
Patient with high blood pressure during this ER visit?: Yes
Discharge Problem:
Gastritis
Instructions: Acid Reflux and GERD in Adults (DC)
Prescriptions:
No Action
atomoxetine [Strattera] 40 MG capsule
40 mg PO DAILY
methylphenidate HCl [Concerta] 36 MG tablet extended release 24hr
72 mg PO DAILY
multivitamin with folic acid [Tab-A-Johana] 1 TABLET tablet
1 tab PO DAILY
desvenlafaxine 50 MG tablet extended release 24hr
50 mg PO DAILY
clonidine HCl 0.1 MG tablet
0.1 mg PO HS
lamotrigine 25 MG tablet, chewable dispersible
25 mg PO BID 30 Days Qty: 60 0RF
Mucus Relief ER 1,200 mg tablet extended release 12hr
1,200 mg PO BID Qty: 14 0RF
albuterol sulfate [Ventolin HFA] 90 mcg/actuation HFA aerosol inhaler
2 puff inhalation Q6H PRN (Reason: shortness of breath or wheezing) Qty: 8.5 0RF
albuterol sulfate [Ventolin HFA] 90 mcg/actuation HFA aerosol inhaler
1 inh inhalation Q6H PRN (Reason: shortness of breath or wheezing) Qty: 1 0RF
prednisone 20 mg tablet
40 mg PO DAILY 5 Days Qty: 10 0RF
Referrals:
UNKNOWN - PT DOES,NOT KNOW [Family Provider]
Activity Restrictions/Additional Instructions:
You were evaluated in the Emergency Department today for epigastric pain, which is most likely due to irritation of the lining of your stomach. Your symptoms improved with medication in the ED. You can take Mylanta, which is available over the
counter, to help manage your symptoms. Avoid spicy or acidic foods.
Please follow up with your primary care physician within two days.
Return to the Emergency Department if you experience shortness of breath, worsening or uncontrolled abdominal or chest pain, headache, light headedness, feeling faint, nausea, vomiting, bloody vomit or stools, black tarry stools, or any other
concerning symptoms.
Thank you for choosing us for your care.
Interventions
Interventions:
*Risk Screen - Suicide Last Done: 10/12/25 12:15
*General Assessment Last Done: 10/12/25 12:52
*Neglect/Abuse Screening Last Done: 10/12/25 12:15
*ED- Fall Risk Assessment Last Done: 10/12/25 12:52
*ED COVID-19 Vaccine History Last Done: 10/12/25 12:52
*ED Influenza Vaccine History Last Done: 10/12/25 12:52
KU-[facility]unwa-Tjjwobse[facility] Assessment Last Done: 10/12/25 12:52
Discharge Date and Time
Print Language: CROATIAN
[2025-10-12] MEDS: TORADOL 15 MG IV (13:41)
[2025-10-12] MEDS: ZOFRAN 4 MG IV (13:41)
[2025-10-12] MEDS: PEPCID 40 MG PO (13:41)
[2025-10-12 13:55] LABS: Hematocrit 42.8 % (37.0-47.0); Hemoglobin 14.5 g/dL (12.0-16.0); Mean Corp Hgb Conc. 33.9 g/dL (33.0-37.0); Mean Corpuscular Volume 70.4 fL (81.0-99.0); Nucleated Red Blood Cells % 0 %; Platelet Count 390 10^3/uL (130-400); Red Cell Dist. Width 15.4 % (11.5-14.5)
[2025-10-12 14:04] LABS: HCG, Serum Qualitative Screen Negative
[2025-10-12 14:10] LABS: ALT (SGPT) 68 U/L (0-35); AST (SGOT) 49 U/L (14-36); Albumin 4.8 g/dl (3.5-5.0); Alkaline Phosphatase 95 U/L (38-126); Blood Urea Nitrogen 10 mg/dl (7-17); Calcium 9.8 mg/dl (8.4-10.2); Carbon Dioxide 25 mmol/L (22-30); Chloride 104 mmol/L (98-107); Estimated Creatinine Clearance > 125 ml/min; Glucose 103 mg/dl (70-99); Lipase 52 U/L (23-300); Potassium 4.4 mmol/L (3.5-5.1); Sodium 139 mmol/L (135-145); Total Protein 8.1 g/dl (6.3-8.2); eGFR > 60.00
== END 2025-10-12 14:58 | disposition home or self-care (01) ==
LOC: EMR 12:08
PROVIDERS: Emergency Medicine; EMERGENCY PHYSICIAN Student in an Organized Health Care Education/Training Program
DX: K29.70 Gastritis, unspecified, without bleeding (principal); R03.0 Elevated blood-pressure reading, without diagnosis of hypertension; N83.201 Unspecified ovarian cyst, right side; F90.9 Attention-deficit hyperactivity disorder, unspecified type; F41.9 Anxiety disorder, unspecified; F32.A Depression, unspecified
CPT/HCPCS: 99284; 96374; 96375; 80053; 81003; 81015; 83690; 84703; 85025